=== PATIENT | female | born 1975 | race Caucasian/White ===

== ENCOUNTER 2016-12-12 10:08 | Emergency (ER) | payer OTHER, MEDICARE ==
[~2016-12-12] VITALS: Ht 157.5 cm; Wt 84.1 kg
[~2016-12-12 10:08] MED LIST: PRI20 PO; PRO20 PO
[2016-12-12 10:15] VITALS: BP 133/92; PULSE 83; RESP 20; O2SAT 98
--- NOTE | 2016-12-12 10:22 | ED.REPORT ---
HPI-Back Pain 40 and Over Date of Service Dec 12, 2016 ED Provider: Chong Issa MD Pt is a 41 y.o. female with a hx of Crohn's and DM who presents to the ED c/o severe right lower back pain onset yesterday. Pt describes the pain as sharp and radiating down her right lower extremity to her knee. She states that the pain began during a hike yesterday and has gradually worsened. She denies fever and bladder/bowel dysfunction. She reports similar pain in the past due to a herniated disk, which has required surgery. Per pt she took a hydrocodone and 5mg of cyclobenzaprine for her pain with little relief. She reports her most recent menses being last week and denies current . Nursing Notes Stated Complaint: BACK PAIN DOWN LEG Chief Complaint: Back Pain or Injury Nursing Notes Reviewed: Yes Allergies: Coded Allergies: TAPE (Verified Allergy, Unknown, 12/12/16) codeine (Verified Adverse Reaction, Mild, N/V, 12/12/16) hydrocodone (Verified Adverse Reaction, Mild, N/V, 12/12/16) Scheduled FLUoxetine-Expunged Drug, Do Not Renew! (FLUoxetine-Expunged Drug, Do Not Renew! ) 20 Mg Capsule 20 MG PO DAILY Methylprednisolone (MethylprednisoLONE Dose Miguelito) 4 Mg Tab.ds.pk 4 MG PO UD Follow direction on package. Omeprazole-Expunged Drug, Do Not Renew! (Omeprazole-Expunged Drug, Do Not Renew! ) 20 Mg Capcr 20 MG PO DAILY Scheduled PRN Hydrocodone-Acetaminophen 5-325 mg (Hydrocodone-Acetaminophen 5-325 mg) 1 Each Tablet 1 TABLET PO Q4H PRN PRN For Pain General Time Seen by MD: 10:20 Chief Complaint Back pain Hx Obtained From: Patient Arrived By: Walk-in Sudden in Onset?: Yes Onset Occurred: Yesterday Symptom Duration: Since onset Caused by: Aggravated old injury Location: : Perispinal lumbar Quality: Painful, Sharp Radiation: : Right leg above knee Severity: Current: Severe Severity: Maximum: Severe Recent Healthcare: No recent doctor visit, No recent hospitalization Similar Sx Previous: Yes Past Medical History Past Medical History Crohn's Reports: Diabetes mellitus Past Surgical History Herniated disk Social History Other Social History: Good social support, Ambulatory Status Independent Review of Systems Female: Denies: Incontinence Musculoskeletal: Reports: Back pain, Extremity pain (Right lower extremity) Neurologic: Denies: Bladder dysfunction, Bowel dysfunction Complete sys rev & neg: except as marked. Physical Exam Initial Vital Signs Vital Signs (First) Date Time Temp Pulse Resp B/P Pulse Ox O2 Delivery O2 Flow Rate FiO2 12/12/16 10:15 36.7 83 20 133/92 98 Room Air Initial VS: Reviewed Head / Eyes: Atraumatic, Normocephalic, PERRL Extremities: Vascular intact, Neuro intact Skin: Warm, Dry, No cyanosis Psychiatric: Mood/affect normal, Behavior normal, Normal thought content General/Constitutional: Awake, Alert, Well appearing, Well developed, Well hydrated, Well nourished, Not toxic appearing Appearance / Presentation: Positive: Uncomfortable Respiratory / Chest: Atraumatic, Breath sounds NL, No respiratory distress Cardiovascular: Heart rate NL, Regular rhythm, Heart sounds NL, Cap refill not delayed, Peripheral circulation NL Abdomen: Atraumatic, Soft, No distention Back: Atraumatic, Inspection NL Neurologic: Oriented X3, No motor deficits Lower extremity strength is 5/5 EHL 5/5 Re-Eval/Medical Decision Source of Hx: Old records Re-Evaluation/Progress : Time of Eval: 10:35 Re-Evaluation/Progress Note: Discussed pt's allergy to Hydriocodone. She states she does not experience an allergic reaction but she does experience associated nausea. Counseled Regarding: Diagnosis, Need for follow-up, When/why to return to ED Discharge & Departure Departure Notes 41-year-old female who is a diet-controlled type II diabetic presenting with symptoms of a lumbar radiculopathy. There are no red flag symptoms. She is neurologically intact. We will start her on oral steroids and analgesics and have her follow up with primary care. Impression: Primary Impression: Lumbar radiculopathy, acute Disposition: Home Patient Instructions: Lumbar Radiculopathy (ED) Additional Instructions: Emergency department evaluation today included interview and examination. History and exam are consistent with compression of a nerve in the lumbar spine affecting the right leg. This will almost certainly improve gradually with time. May use hydrocodone/APAP one every 4-6 hours as needed for pain, start Medrol Dosepak today and take as directed, when this is completed use Aleve 1-2 tablets twice daily. Continue the cyclobenzaprine and ice. Contact your primary care provider on Wednesday for follow-up. Return to emergency department for problems with bowel or bladder control or weakness of the right leg. Referrals: Nicole Jimenez PA-C (PCP) Aubree Attestation Portions of this note were transcribed by Jim Olmedo. I, Dr. Issa personally performed the history, physical exam and medical decision-making; I reviewed and confirmed the accuracy of the information in the transcribed note. Signed by: Aubree Guajardo, 12/12/16 and 1106 copies to: Nicole Jimenez PA-C, Donald L MD Dec 12, 2016 10:22 JIM OLMEDO Dec 12, 2016 10:33
[2016-12-12] MEDS ORDERED: HYDROcodone-APAP 5-325 mg Tablet PO ONE (10:35)
[2016-12-12] MEDS ORDERED: HYDR-4003 PO (10:40)
[2016-12-12] MEDS ORDERED: METH4TAB11 PO (10:40)
[2016-12-12 11:12] VITALS: BP 133/92; PULSE 83; RESP 20; O2SAT 98
== END 2016-12-12 11:20 | disposition home or self-care (01) ==
LOC: SED 10:08
DX: M54.16 Radiculopathy, lumbar region (principal); E11.9 Type 2 diabetes mellitus without complications; K50.90 Crohn's disease, unspecified, without complications; Z87.39 Personal history of other diseases of the musculoskeletal system and connective tissue; Z98.890 Other specified postprocedural states; Z88.5 Allergy status to narcotic agent